=== PATIENT | male | born 1945 | race Two or more races ===

== ENCOUNTER 2025-04-26 10:23 | Emergency (ER) | payer OTHER ==
[~2025-04-26] VITALS: Ht 177.8 cm; Wt 68.0 kg
[2025-04-26 10:36] VITALS: O2SAT 96
[2025-04-26] MEDS ORDERED: SYNTHROID50 MCG PO (10:37)
[2025-04-26 12:21] LABS: BASO % 0.2 % (0.1-1.2); EOS # 0.00 (0.04-0.54); EOS % 0.0 % (0.7-7.0); LYMPH # 1.49 (1.18-3.74); LYMPH % 8.9 % (19.3-53.1); MEAN PLATELET VOLUME 10.20 fl (9.4-12.4); MONO # 0.78 (0.24-0.82); MONO % 4.7 % (4.7-12.5); NEUT # 14.01 (1.56-6.13); NEUT % 84.2 % (34.0-71.1); RED CELL DISTRIBUTION WIDTH 12.4 % (11.6-14.4)
[2025-04-26 12:48] LABS: BUN CREA RATIO 25.0 (7.0-25.0); CREATININE SERUM 1.14 mg/dL (0.70-1.30); GFR 61.96; GLUCOSE FASTING 138.0 mg/dL (65-100); OSMOLALITY SERUM 278.0 MOSM/KG (275-295)
[2025-04-26 16:23] VITALS: BP 146/67
== END 2025-04-26 16:25 | disposition home or self-care (01) ==
LOC: ER 10:23
PROVIDERS: Emergency Medicine
DX: S00.33XA Contusion of nose, initial encounter (principal); W18.39XA Other fall on same level, initial encounter; Y93.89 Activity, other specified; Y92.018 Other place in single-family (private) house as the place of occurrence of the external cause; Y99.9 Unspecified external cause status; M51.369 Other intervertebral disc degeneration, lumbar region without mention of lumbar back pain or lower extremity pain; E03.9 Hypothyroidism, unspecified; G30.9 Alzheimer's disease, unspecified; F02.80 Dementia in other diseases classified elsewhere, unspecified severity, without behavioral disturbance, psychotic disturbance, mood disturbance, and anxiety